=== PATIENT | male | born 1950 ===

== ENCOUNTER 2023-09-23 05:07 | Day surgery (SDC) | payer BC, OTHER ==
[2023-09-22 09:52] VITALS: BMI 23.1
[2023-09-23 11:29] LABS: INR 0.99 (0.83-1.09); PROTHROMBIN TIME (PATIENT) 11.4 SEC (9.7-13.0)
[2023-09-23] MEDS ORDERED: LIDOCAINE HCL/PF 2% SDV 5ML VIAL ONE (11:55)
[2023-09-23] MEDS ORDERED: ROCURONIUM BROMIDE 50 MG/5 ML SYRINGE ONE (11:56)
[2023-09-23] MEDS ORDERED: PROPOFOL 20 ML ONE (11:56)
[2023-09-23] MEDS ORDERED: MIDAZOLAM HCL 2 MG/2 ML SINGLE DOSE VIAL ONE (11:56)
[2023-09-23] MEDS ORDERED: DEXAMETHASONE SOD PHOSPHATE 4 MG/1 ML VIAL ONE (12:32)
[2023-09-23] MEDS ORDERED: KETOROLAC TROMETHAMINE 30 MG/1 ML VIAL ONE (12:32)
[2023-09-23] MEDS ORDERED: ONDANSETRON 4 MG/2 ML VIAL ONE (12:32)
[2023-09-23] MEDS ORDERED: SEVOFLURANE 250 ML BTL ONE (12:32)
[2023-09-23] MEDS ORDERED: BUPIVACAINE HCL/PF 0.25% (2.5MG/ML) 10 ML VIAL ONE (13:06)
[2023-09-23] MEDS ORDERED: ONDANSETRON 4 MG/2 ML VIAL IVPUSH PRN ×2 (13:43→15:47)
[2023-09-23] MEDS ORDERED: PROMETHAZINE HCL 25 MG/1 ML VIAL IVPB PRN ×2 (13:43→15:47)
[2023-09-23] MEDS ORDERED: oxyCODONE HCL 5 MG TABLET PO PRN (13:43)
[2023-09-23] MEDS ORDERED: LACTATED RINGERS SOLUTION 1,000 ML IV SCH ×2 (13:45→16:00)
[2023-09-23] MEDS: ceFAZolin SODIUM 1 GM VIAL IVPB ONE ×2 (13:56)
[2023-09-23] MEDS: BUPIVACAINE HCL/PF 0.25% (2.5MG/ML) 10 ML VIAL IJ ONE ×2 (14:23)
[2023-09-23] MEDS ORDERED: LABETALOL HCL 5 MG/1 ML (100MG/20 ML VIAL) IVPUSH ONE (15:48)
[2023-09-23 17:53] VITALS: PULSE 60; RESP 18; TEMP 97.7
[2023-09-23 18:10] VITALS: BP 114/90
== END 2023-09-23 18:10 | disposition home or self-care (01) ==
LOC: JASU-SURG 05:07
PROVIDERS: ATTEND Surgery
PROC: 8E0W4CZ Robotic Assisted Procedure of Trunk Region, Percutaneous Endoscopic Approach (ICD-10-PCS; 2023-09-23)
PROC: 0WUF4JZ Supplement Abdominal Wall with Synthetic Substitute, Percutaneous Endoscopic Approach (ICD-10-PCS; principal; 2023-09-23 13:00)
DX: K42.9 Umbilical hernia without obstruction or gangrene (principal)
CPT/HCPCS: 49591; S2900; 36415; 85610; 86850; 86900; 86901; 94760; C1781